=== PATIENT | male | born 1940 | race African-American/Black ===

== ENCOUNTER 2017-12-04 09:36 | Inpatient (IN) | payer SELFPAY ==
[~2017-12-04] VITALS: Ht 167.6 cm; Wt 67.1 kg
[2017-12-04] MEDS ORDERED: ALBUTEROL (0.083%) 2.5MG/3ML NEB HHN STA (10:54)
[2017-12-04] MEDS ORDERED: IPRATROPIUM BROMIDE (0.02%) 0.5MG/2.5ML NEB HHN STA (10:54)
[2017-12-04 11:03] LABS: BASOPHILS % 0.7 % (0.0-2.0); EOSINOPHILS % 2.5 % (0.0-5.0); HEMATOCRIT. 51.4 % (42.0-52.0); HEMOGLOBIN. 17.1 g/dL (14.0-18.0); LYMPHOCYTES % 30.8 % (20.0-50.0); MEAN CORPUSCULAR HEMOGLOBIN 29.1 pg (28.0-32.0); MEAN CORPUSCULAR VOLUME 87.3 fL (80.0-94.0); MEAN PLATELET VOLUME 7.2 fl (7.4-10.4); MONOCYTES % 9.7 % (2.0-8.0); NEUTROPHILS % 56.3 % (40.0-76.0); PLATELET 174 x1000/uL (130-400); RED BLOOD CELL COUNT 5.88 mill/uL (4.7-6.1); RED CELL DISTRIBUTION WIDTH 14.9 % (11.6-14.6)
[2017-12-04 11:12] LABS: CHLORIDE 100 mEq/L (98-107)
[2017-12-04 11:13] LABS: PROTHROMBIN TIME 10.3 sec (9.1-11.1)
[2017-12-04] MEDS ORDERED: SODIUM CHLORIDE 0.9% 1,000 ML IV ONE (12:00)
[2017-12-04] MEDS ORDERED: ENOXAPARIN 60MG/0.6ML SYR SUBCUT ONE (12:15)
[2017-12-04] MEDS ORDERED: IOHEXOL-300 100 ML BOTTLE ONE (12:50)
[2017-12-04 13:50] VITALS: BP 153/76
[2017-12-04] MEDS ORDERED: ACETAMINOPHEN 325MG TABLET PO PRN (15:15)
[2017-12-04] MEDS ORDERED: ZOLPIDEM TARTRATE 5MG TABLET PO PRN (15:15)
[2017-12-04] MEDS ORDERED: DIPHENHYDRAMINE 50MG/ML VIAL IV PRN (15:15)
[2017-12-04] MEDS ORDERED: MAGNESIUM/ALUMINUM HYDROXIDE/SIMETHICONE 30ML UDC PO PRN (15:15)
[2017-12-04] MEDS ORDERED: ONDANSETRON HCL 4MG/2ML VIAL IV PRN (15:15)
[2017-12-04] MEDS ORDERED: IPRATROPIUM/ALBUTEROL 0.5-3(2.5)MG/3ML NEB INH PRN (15:15)
[2017-12-04] MEDS ORDERED: DOCUSATE SODIUM 100MG CAPSULE PO PRN (15:15)
[2017-12-04] MEDS ORDERED: KETOROLAC 30MG/ML VIAL IV PRN (15:15)
[2017-12-04] MEDS ORDERED: NA PHOS,M-B/NA PHOS,DI-BA ENEMA 118ML PR PRN (15:15)
[2017-12-04] MEDS ORDERED: LORAZEPAM 0.5MG TABLET PO PRN (15:15)
[2017-12-04] MEDS ORDERED: TRAMADOL 50MG TABLET PO PRN (15:15)
[2017-12-04] MEDS ORDERED: CLONIDINE 0.1MG TABLET PO PRN (15:15)
[2017-12-04] MEDS ORDERED: GUAIFENESIN 200MG/10ML SUGAR FREE UDC PO PRN (15:15)
[2017-12-04] MEDS ORDERED: ONDANSETRON 4MG ODT PO PRN (15:45)
[2017-12-04 16:17] VITALS: BP 144/92
[2017-12-04] MEDS ORDERED: BUDESONIDE 0.5MG/2ML NEB HHN NR (16:30)
[2017-12-04] MEDS ORDERED: LEVOFLOXACIN 500MG PREMIX 100 ML IV SCH (17:00)
[2017-12-04] MEDS ORDERED: APIXABAN 5 MG TABLET PO SCH (17:00)
[2017-12-04] MEDS ORDERED: LISINOPRIL 10MG TABLET PO NR (18:00)
[2017-12-04] MEDS ORDERED: BENZONATATE 100MG CAPSULE PO PRN (18:00)
[2017-12-04] MEDS ORDERED: AMLODIPINE 2.5MG TABLET PO NR (18:00)
[2017-12-04] MEDS ORDERED: IPRATROPIUM/ALBUTEROL 0.5-3(2.5)MG/3ML NEB HHN SCH (18:30)
[2017-12-04 20:00] VITALS: BP 138/71
[2017-12-04] MEDS: IPRATROPIUM/ALBUTEROL 0.5-3(2.5)MG/3ML NEB HHN SCH (21:03)
[2017-12-04] MEDS: ACETYLCYSTEINE 100MG/ML 10% VIAL 4ML INH SCH (21:04)
[2017-12-04] MEDS: BUDESONIDE 0.5MG/2ML NEB HHN SCH (21:04)
[2017-12-04] MEDS: METOPROLOL TARTRATE 25MG TABLET PO SCH (21:40)
[2017-12-04] MEDS: FAMOTIDINE 20MG TABLET PO SCH (21:40)
[2017-12-04] MEDS ORDERED: ENOXAPARIN 60MG/0.6ML SYR SUBCUT SCH (22:00)
[2017-12-05] VITALS: BP 115/88
[2017-12-05] MEDS: IPRATROPIUM/ALBUTEROL 0.5-3(2.5)MG/3ML NEB HHN SCH ×6 (00:21→20:10)
[2017-12-05 00:45] LABS: CREATINE KINASE 746 IU/L (39-308)
[2017-12-05 00:46] LABS: CREATINE KINASE MB FRACTION 3.5 ng/mL (0.5-3.6)
[2017-12-05 01:40] LABS: CLARITY URINE CLEAR (CLEAR); COLOR URINE YELLOW (YELLOW); KETONES URINE NEGATIVE (NEGATIVE); LEUKOCYTE ESTERASE URINE NEGATIVE (NEGATIVE); NITRITE URINE NEGATIVE (NEGATIVE); OCCULT BLOOD URINE NEGATIVE (NEGATIVE); PH URINE 7.5 (4.5-8.0); PROTEIN URINE NEGATIVE (NEGATIVE); SPECIFIC GRAVITY URINE 1.019 (1.005-1.030); UROBILINOGEN URINE 0.2 E.U./dL (0.2-1.0)
[2017-12-05 02:15] LABS: *BENZODIAZEPINES SCREEN URINE NEGATIVE (NEGATIVE); *COCAINE SCREEN URINE NEGATIVE (NEGATIVE); METHADONE URINE SCREEN NEGATIVE (NEGATIVE); OPIATES URINE SCREEN NEGATIVE (NEGATIVE); PHENCYCLIDINE URINE SCREEN NEGATIVE (NEGATIVE)
[2017-12-05 02:16] LABS: *AMPHETAMINES SCREEN URINE NEGATIVE (NEGATIVE); *BARBITURATES SCREEN URINE NEGATIVE (NEGATIVE); CANNABINOID URINE SCREEN NEGATIVE (NEGATIVE)
[2017-12-05 04:00] VITALS: BP 150/90
[2017-12-05] MEDS: BUDESONIDE 0.5MG/2ML NEB HHN SCH ×2 (07:25→20:43)
[2017-12-05] MEDS: ACETYLCYSTEINE 100MG/ML 10% VIAL 4ML INH SCH ×3 (07:25→20:10)
[2017-12-05 07:54] LABS: CREATINE KINASE 833 IU/L (39-308); CREATINE KINASE MB FRACTION 3.1 ng/mL (0.5-3.6)
[2017-12-05 08:53] VITALS: BP 142/85
[2017-12-05] MEDS ORDERED: ALD50 MT (08:56)
[2017-12-05] MEDS ORDERED: LISINOPRIL 10MG TABLET PO SCH (09:00)
[2017-12-05] MEDS ORDERED: AMLODIPINE 5MG TABLET PO SCH (09:00)
[2017-12-05] MEDS: APIXABAN 5 MG TABLET PO SCH ×2 (09:42→19:26)
[2017-12-05] MEDS: METOPROLOL TARTRATE 25MG TABLET PO SCH ×2 (09:43→21:18)
[2017-12-05 10:32] LABS: BASOPHILS % 1.1 % (0.0-2.0); EOSINOPHILS % 1.6 % (0.0-5.0); HEMOGLOBIN. 16.6 g/dL (14.0-18.0); LYMPHOCYTES % 30.7 % (20.0-50.0); MEAN CORPUSCULAR HEMOGLOBIN 29.5 pg (28.0-32.0); MEAN CORPUSCULAR VOLUME 87.2 fL (80.0-94.0); MEAN PLATELET VOLUME 7.6 fl (7.4-10.4); MONOCYTES % 14.4 % (2.0-8.0); NEUTROPHILS % 52.2 % (40.0-76.0); PLATELET 160 x1000/uL (130-400); RED BLOOD CELL COUNT 5.63 mill/uL (4.7-6.1); RED CELL DISTRIBUTION WIDTH 14.4 % (11.6-14.6)
[2017-12-05 12:53] VITALS: BP 125/85
[2017-12-05 16:59] VITALS: BP 127/76
[2017-12-05] MEDS ORDERED: MONTELUKAST SODIUM 10MG TABLET PO SCH (17:00)
[2017-12-05 20:00] VITALS: BP 126/69
[2017-12-05] MEDS: FAMOTIDINE 20MG TABLET PO SCH (21:18)
[2017-12-06] VITALS: BP 97/64
[2017-12-06] MEDS: IPRATROPIUM/ALBUTEROL 0.5-3(2.5)MG/3ML NEB HHN SCH ×3 (00:05→12:19)
[2017-12-06 04:00] VITALS: BP 129/77
[2017-12-06] MEDS: ACETYLCYSTEINE 100MG/ML 10% VIAL 4ML INH SCH ×2 (04:50→12:18)
[2017-12-06 08:37] VITALS: BP 121/70
[2017-12-06] MEDS: APIXABAN 5 MG TABLET PO SCH (09:34)
[2017-12-06] MEDS: METOPROLOL TARTRATE 25MG TABLET PO SCH (09:34)
[2017-12-06] MEDS: BUDESONIDE 0.5MG/2ML NEB HHN SCH (12:18)
[2017-12-06 12:54] VITALS: BP 128/62
[2017-12-06 13:46] VITALS: BP 128/62
[2017-12-12] MEDS ORDERED: APIXABAN 5 MG TABLET PO SCH (09:00)
== END 2017-12-06 17:11 | disposition home or self-care (01) | DRG 134 ==
LOC: ER 10:13 → 6WST 12:34 → ENRESERV 12:48 → 6WST 12-05 05:52
PROVIDERS: ADMIT Internal Medicine; ATTEND Internal Medicine
DX: I26.99 Other pulmonary embolism without acute cor pulmonale (principal); J96.00 Acute respiratory failure, unspecified whether with hypoxia or hypercapnia; N17.0 Acute kidney failure with tubular necrosis; D68.59 Other primary thrombophilia; J44.1 Chronic obstructive pulmonary disease with (acute) exacerbation; N40.0 Benign prostatic hyperplasia without lower urinary tract symptoms; I12.9 Hypertensive chronic kidney disease with stage 1 through stage 4 chronic kidney disease, or unspecified chronic kidney disease; J45.909 Unspecified asthma, uncomplicated; N18.9 Chronic kidney disease, unspecified; I82.412 Acute embolism and thrombosis of left femoral vein; I82.432 Acute embolism and thrombosis of left popliteal vein; Z79.899 Other long term (current) drug therapy
CPT/HCPCS: 36415; 71045; 71275; 80048; 80053; 80061; 80305; 81003; 82550; 82553; 83036; 83880; 84484; 85025; 85610; 87086; 93005; 93306; 93970; 94640; 96360; 96372; 99285; C1893; J1650; J1956; J7030; J7608; J7611; J7620; J7626; Q9967

== ENCOUNTER 2018-01-22 09:09 | Inpatient (IN) | payer SELFPAY ==
[~2018-01-22] VITALS: Ht 167.6 cm; Wt 88.9 kg
[2018-01-22] MEDS ORDERED: APIX5TAB PO (09:15)
[2018-01-22] MEDS ORDERED: METHYLPREDNISOLONE SOD SUCC 125 MG/2 ML VIAL IV STA (09:25)
[2018-01-22] MEDS ORDERED: ALBUTEROL (0.083%) 2.5MG/3ML NEB HHN STA ×3 (09:25→14:51)
[2018-01-22] MEDS ORDERED: IPRATROPIUM BROMIDE (0.02%) 0.5MG/2.5ML NEB HHN STA (09:25)
[2018-01-22 10:11] LABS: BASOPHILS % 0.9 % (0.0-2.0); EOSINOPHILS % 3.9 % (0.0-5.0); HEMATOCRIT. 51.1 % (42.0-52.0); HEMOGLOBIN. 17.1 g/dL (14.0-18.0); LYMPHOCYTES % 37.4 % (20.0-50.0); MEAN CORPUSCULAR VOLUME 86.6 fL (80.0-94.0); MEAN PLATELET VOLUME 7.4 fl (7.4-10.4); MONOCYTES % 10.2 % (2.0-8.0); NEUTROPHILS % 47.6 % (40.0-76.0); PLATELET 188 x1000/uL (130-400); RED CELL DISTRIBUTION WIDTH 14.2 % (11.6-14.6)
[2018-01-22 10:20] LABS: CHLORIDE 105 mEq/L (98-107)
[2018-01-22] MEDS ORDERED: ALBUTEROL (0.083%) 2.5MG/3ML NEB ONE (11:09)
[2018-01-22] MEDS ORDERED: IPRATROPIUM BROMIDE (0.02%) 0.5MG/2.5ML NEB ONE (11:10)
[2018-01-22] MEDS ORDERED: CLONIDINE 0.1MG TABLET PO PRN (16:30)
[2018-01-22] MEDS ORDERED: HYDROCODONE/ACETAMINOPHEN 5/325MG TABLET PO PRN (16:30)
[2018-01-22] MEDS ORDERED: ACETAMINOPHEN 325MG TABLET PO PRN (16:30)
[2018-01-22] MEDS ORDERED: ONDANSETRON HCL 4MG/2ML INJ IV PRN (16:30)
[2018-01-22] MEDS ORDERED: IPRATROPIUM/ALBUTEROL 0.5-3(2.5)MG/3ML NEB INH PRN (16:30)
[2018-01-22] MEDS ORDERED: DOCUSATE SODIUM 100MG CAPSULE PO PRN (16:30)
[2018-01-22] MEDS ORDERED: GUAIFENESIN 200MG/10ML SUGAR FREE UDC PO PRN (16:30)
[2018-01-22 16:44] VITALS: BP 148/72
[2018-01-22] MEDS ORDERED: APIXABAN 5 MG TABLET PO SCH (17:00)
[2018-01-22] MEDS ORDERED: LEVOFLOXACIN 500MG PREMIX 100 ML IV SCH ×2 (17:30→20:00)
[2018-01-22] MEDS: APIXABAN 5 MG TABLET PO SCH (17:37)
[2018-01-22] MEDS: METHYLPREDNISOLONE SOD SUCC 125 MG/2 ML VIAL IV SCH ×2 (17:43→22:31)
[2018-01-22 18:59] VITALS: BP 145/72
[2018-01-22] MEDS ORDERED: ZOLPIDEM TARTRATE 5MG TABLET PO PRN (19:30)
[2018-01-22] MEDS ORDERED: LORAZEPAM 2MG/ML CPJ IV PRN (19:30)
[2018-01-22 20:00] VITALS: BP 147/81
[2018-01-22] MEDS: IPRATROPIUM/ALBUTEROL 0.5-3(2.5)MG/3ML NEB INH SCH (21:05)
[2018-01-23 00:51] VITALS: BP 139/78
[2018-01-23] MEDS: IPRATROPIUM/ALBUTEROL 0.5-3(2.5)MG/3ML NEB INH SCH ×3 (01:25→09:33)
[2018-01-23] MEDS: METHYLPREDNISOLONE SOD SUCC 125 MG/2 ML VIAL IV SCH ×2 (04:33→08:34)
[2018-01-23 04:36] VITALS: BP 141/94
[2018-01-23 06:20] LABS: BASOPHILS % 0.2 % (0.0-2.0); HEMATOCRIT. 45.7 % (42.0-52.0); HEMOGLOBIN. 15.7 g/dL (14.0-18.0); LYMPHOCYTES % 8.8 % (20.0-50.0); MEAN CORPUSCULAR HEMOGLOBIN 29.6 pg (28.0-32.0); MEAN CORPUSCULAR VOLUME 85.9 fL (80.0-94.0); MEAN PLATELET VOLUME 7.6 fl (7.4-10.4); MONOCYTES % 1.5 % (2.0-8.0); NEUTROPHILS % 89.5 % (40.0-76.0); PLATELET 196 x1000/uL (130-400); RED BLOOD CELL COUNT 5.32 mill/uL (4.7-6.1); RED CELL DISTRIBUTION WIDTH 14.1 % (11.6-14.6)
[2018-01-23 06:36] LABS: CHLORIDE 105 mEq/L (98-107)
[2018-01-23 06:48] LABS: LDL CHOLESTEROL 98 mg/dL (5-100)
[2018-01-23 06:50] LABS: HDL CHOLESTEROL 60 mg/dL (40-59)
[2018-01-23 07:55] VITALS: BP 143/79
[2018-01-23] MEDS: APIXABAN 5 MG TABLET PO SCH (08:34)
[2018-01-23] MEDS ORDERED: AMLODIPINE 10MG TABLET PO SCH (09:00)
[2018-01-23 10:33] VITALS: BP 143/79
[2018-01-23] MEDS ORDERED: FAMOTIDINE 20MG TABLET PO SCH (11:00)
== END 2018-01-23 11:05 | disposition home or self-care (01) | DRG 141 ==
LOC: ER 09:09 → 6WST 13:53 → EDBEDREQTM 13:56 → EDBEDREQ 13:56 → ENRESERV 14:51
PROVIDERS: ADMIT Hospitalist; ATTEND Hospitalist
DX: J45.901 Unspecified asthma with (acute) exacerbation (principal); D68.59 Other primary thrombophilia; J44.9 Chronic obstructive pulmonary disease, unspecified; F41.9 Anxiety disorder, unspecified; I10 Essential (primary) hypertension; Z79.01 Long term (current) use of anticoagulants; Z86.711 Personal history of pulmonary embolism; Z86.718 Personal history of other venous thrombosis and embolism
CPT/HCPCS: 36415; 71045; 80053; 80061; 83880; 84484; 85025; 93005; 93970; 94640; 96374; 99285; J1956; J2930; J7050; J7611; J7620